=== PATIENT | female | born 1955 | race Caucasian/White ===

== ENCOUNTER 2019-01-04 06:57 | Day surgery (SDC) | payer MEDICARE ==
[2019-01-02 14:19] VITALS: BP 134/74
[2019-01-02 14:26] LABS: BASOPHILS % (AUTO) 0.6 % (0.0-5.0); EOSINOPHILS % (AUTO) 0.6 % (0.0-8.0); LYMPHOCYTES % (AUTO) 31.8 % (21.0-51.0); MEAN CORPUSCULAR HEMOGLOBIN 30.8 pg (27.0-33.0); MEAN CORPUSCULAR HGB CONC 32.9 g/dL (32.0-36.0); MEAN CORPUSCULAR VOLUME 93.7 fL (79-99); NUCLEATED RED BLOOD CELLS 0.1 % (0.0-0.19); PLATELET COUNT (AUTO) 223 K/uL (130-400); RED BLOOD CELL COUNT(AUTO) 4.06 MIL/uL (4.00-5.50); RED CELL DISTRIBUTION WIDTH 14.3 % (11.0-15.5); WHITE BLOOD COUNT (AUTO) 3.5 K/uL (4.8-10.8)
[2019-01-02 14:46] LABS: ALBUMIN 4.1 g/dL (3.5-5.0); BILIRUBIN,DIRECT 0.1 mg/dL (0.0-0.3); BILIRUBIN,TOTAL 0.6 mg/dL (0.2-1.0); TOTAL PROTEIN, SERUM 8.3 g/dL (6.0-8.3)
--- NOTE | 2019-01-03 16:54 | NUR ---
REPORTED WBC 3.5 , NO NEW ORDERS
[2019-01-04] VITALS (17 sets, daily range): BP systolic 129–149; BP diastolic 64–80
[~2019-01-04] VITALS: Ht 161.3 cm; Wt 57.0 kg
[~2019-01-04 06:57] MED LIST: LACTATED RINGERS 1000ML 1,000 ML IV SCH; PRAV40TA3 PO; TYLENOL ARTHRITIS PO
[2019-01-04] MEDS ORDERED: HEPARIN SODIUM 1000UNIT/ML 10ML VIAL ONE (07:25)
[2019-01-04] MEDS ORDERED: MIDAZOLAM HCL 1 MG/ML 2ML VIAL ONE (08:17)
[2019-01-04] MEDS ORDERED: LIDOCAINE PF 2% 5ML ABBOJECT ONE (08:17)
[2019-01-04] MEDS ORDERED: ONDANSETRON HCL 4 MG/2 ML VIAL ONE (08:17)
[2019-01-04] MEDS ORDERED: DEXAMETHASONE SOD PHOSPHATE 10MG/ML 1ML VIAL ONE (08:17)
[2019-01-04] MEDS ORDERED: ROCURONIUM 10MG/1ML SYR 10 MG/ML ML ONE (08:18)
[2019-01-04] MEDS ORDERED: FENTANYL CITRATE PF 50 MCG/1 ML 2ML VIAL ONE (08:18)
[2019-01-04] MEDS ORDERED: PROPOFOL 10 MG/ML 20ML VIAL IV ONE (08:18)
[2019-01-04] MEDS ORDERED: SUCCINYLCHOLINE 200MG/10ML SYR ONE (08:18)
[2019-01-04] MEDS ORDERED: EPHEDRINE SULFATE 50 MG/ML AMPULE ONE (08:38)
[2019-01-04] MEDS ORDERED: GLYCOPYRROLATE 1 MG/5 ML SYRINGE ONE (08:58)
[2019-01-04] MEDS ORDERED: NEOSTIGMINE 5MG/5ML SYR IV ONE (08:58)
--- NOTE | 2019-01-04 10:19 | NUR ---
ASSESMENT RECEIVED PT FROM PACU STAFF YESSENIA ARROYO. ABD DRSG X4 DRY AND INTACT. SOFT TO TOUCH. NO BLEEDING, OOZING NOTED TO SITE. AT BEDSIDE.
--- NOTE | 2019-01-04 10:22 | NUR ---
REDNESS REDNESS NOTED TO RIGHT EYE. STATES SHE FELT "IRRITATED". INFORMED DARSHAN IBARRA OF REDNESS. ORDERS RECEIVED TO PLACE AND ICE PACK TO RIGHT EYE. PT VERBALIZED UNDERSTANDING.
--- NOTE | 2019-01-04 11:00 | NUR ---
DISCHARGE ORAL AND WRITTEN DISCHARGE INSTRUCTIONS GIVEN TO PT AND PTS ALONG WITH PRESCRIPTION. NO OTHER QUESTIONS AT THIS TIME.
--- NOTE | 2019-01-04 11:05 | NUR ---
REDNESS REDNESS TO RIGHT EYE BETTER. SLIGHT RED.
== END 2019-01-04 10:55 | disposition home or self-care (01) ==
LOC: DAH 06:57
PROVIDERS: ATTEND Surgery
DX: K81.1 Chronic cholecystitis (principal); K82.8 Other specified diseases of gallbladder; Z79.899 Other long term (current) drug therapy; Z87.891 Personal history of nicotine dependence; Z82.49 Family history of ischemic heart disease and other diseases of the circulatory system
CPT/HCPCS: 36415; 47562; 80076; 85025; 88304; 93005; A4450; A4600; C1769 ×4; J0330; J1100; J1644; J2001; J2250; J2405; J2704; J2710; J3010; J3490 ×2; J7030; J7120 ×2

== ENCOUNTER → 2023-02-07 | Outpatient (CLI) | payer OTHER ==
[~2023-02-07] MED LIST changes: -LACTATED RINGERS 1000ML 1,000 ML IV SCH
== END | disposition home or self-care (01) ==
LOC: OIH 08:49
PROVIDERS: ATTEND Nurse Practitioner Adult Health
DX: Z13.6 Encounter for screening for cardiovascular disorders (principal)
CPT/HCPCS: 75571

== ENCOUNTER → 2023-03-03 | Outpatient (CLI) | payer OTHER | END | disposition home or self-care (01) | LOC: RAH 13:38 | PROVIDERS: ATTEND Nurse Practitioner Adult Health | DX: R01.1 Cardiac murmur, unspecified (principal) | CPT/HCPCS: 93306 ==

== ENCOUNTER → 2023-10-07 | Outpatient (CLI) | payer OTHER ==
[~2023-10-07] MED LIST changes: +IOHEXOL 350 MG/ML 100ML INFUS..BTL IV ONE
== END | disposition home or self-care (01) ==
LOC: RAH 11:16
PROVIDERS: ATTEND Surgery Surgical Oncology
DX: K94.19 Other complications of enterostomy (principal); Z90.49 Acquired absence of other specified parts of digestive tract
CPT/HCPCS: 74177; Q9967